=== PATIENT | female | born 1965 | race Two or more races ===

== ENCOUNTER 2019-07-23 12:46 | Emergency (ER) | payer OTHER ==
[~2019-07-23] VITALS: Ht 157.5 cm; Wt 59.9 kg
[2019-07-23 13:00] VITALS: BP 114/70
[2019-07-23] MEDS ORDERED: Gadavist 7.5mMol/7.5ml vial IV PRN ×2 (13:30→14:45)
--- NOTE | 2019-07-23 14:25 | NUR ---
ED Nurse Note: Patient moved from chair area to hallway bed. IV line established and blood sample collected and sent as ordered. Patient tolerated the procedure.
--- NOTE | 2019-07-23 14:45 | NUR ---
ED Nurse Note: Patient presents to ER due to chronic posterior neck pain radiating to LUE with nubmness/tingling since 2018. Patient attempted to relieve pain with Motrin. Patient awake, alert, oriented x 4. Regular, unlabored breathing noted. Reports no headache, N/V. Patient drove here from [place]. No facial grimacing or guarding noted. Placed patient in bed. Bed in lowest position.
--- NOTE | 2019-07-23 14:45 | Diagnostic Imaging Report ---
Indication: Headache Technique: Contiguous 5 mm thick transaxial imaging of the head obtained in a Siemens Sensation [address] scanner. Soft tissue and bone windows generated. Automatic Exposure Control was utilized. Total Dose length Product (DLP): 1304.[address] Dose Index Volume (CTDIvol): 60 mGy Comparison: none Findings: There is a rounded 2 x 1.5 cm mass in the left temporal lobe with associated surrounding low attenuation vasogenic edema. The mass exhibits a rim of high attenuation and a central low attenuation area and is suspicious for tumor. Differential includes cerebritis secondary to infection. There is some mass effect on the left lateral ventricle which is compressed. There is no midline shift. No additional lesions are seen. Further evaluation with gadolinium-enhanced MRI as indicated recommended. Basal cisterns appear normal. Osseous structures appear normal. Paranasal sinuses are clear as visualized. IMPRESSION: Approximately 2 x 1.5 cm mass in the left temporal lobe with surrounding vasogenic edema suspicious for neoplasm. Infection is in the differential diagnosis. Further evaluation with gadolinium-enhanced MRI is recommended. The CT scanner at [facility] is accredited by the [employer] and the scans are performed using dose optimization techniques as appropriate to a performed exam including Automatic Exposure control.
[2019-07-23 14:57] LABS: ANION GAP 12 mmol/L (5-15); BLOOD UREA NITROGEN 20 mg/dL (7-18); CALCIUM 8.8 MG/DL (8.5-10.1); CARBON DIOXIDE 25 MMOL/L (21-32); CHLORIDE 109 MMOL/L (98-107); CREATININE 0.7 MG/DL (0.55-1.30); POTASSIUM 3.6 MMOL/L (3.5-5.1); SODIUM 146 MMOL/L (136-145)
[2019-07-23] MEDS ORDERED: LORazepam 0.5mg tab ORAL ONE (15:00)
[2019-07-23 15:02] LABS: ALANINE AMINOTRANSFERASE 28 U/L (12-78); ALBUMIN 4.1 G/DL (3.4-5.0); ALBUMIN/GLOBULIN RATIO 0.8 (1.0-2.7); ALKALINE PHOSPHATASE 186 U/L (46-116); ASPARTATE AMINO TRANSFERASE 20 U/L (15-37); BILIRUBIN,TOTAL 0.5 MG/DL (0.2-1.0)
[2019-07-23 15:04] LABS: BASOPHILS % (AUTO) 1.1 % (0.0-2.0); EOSINOPHILS % (AUTO) 1.9 % (0.0-3.0); HEMATOCRIT 43.6 % (37.0-47.0); HEMOGLOBIN 14.8 G/DL (12.0-16.0); LYMPHOCYTES % (AUTO) 37.9 % (20.0-45.0); MEAN CORPUSCULAR VOLUME 92 FL (80-99); MONOCYTES % (AUTO) 5.5 % (1.0-10.0); NEUTROPHILS % (AUTO) 53.6 % (45.0-75.0); PLATELET COUNT 303 K/UL (150-450); RED BLOOD COUNT 4.73 M/UL (4.20-5.40); RED CELL DISTRIBUTION WIDTH 12.1 % (11.6-14.8); WHITE BLOOD COUNT 6.9 K/UL (4.8-10.8)
--- NOTE | 2019-07-23 15:45 | NUR ---
ED Nurse Note: Patient returned from MRI scan in wheelchair. No facial grimacing or guarding noted.
--- NOTE | 2019-07-23 16:11 | Diagnostic Imaging Report ---
Indication: Abnormal CT. Headache. Technique: The head was imaged in a 1.5 Flori magnet. Sequences obtained include sagittal and axial T1 FLAIR, axial T2 fast spin echo with fat saturation, axial T2 FLAIR, diffusion and ADC map. Gadolinium-enhanced axial and coronal T1 FLAIR obtained also. Comparison: Noncontrast CT earlier today There is a 13 x 19 x 16 mm heterogeneous lesion within the left temporal lobe. The focus is notable for an intense rim of low signal intensity on T2-weighted images. On both T1 and T2-weighted images the central aspect of the focus shows T1 shortening signal or bright T1 signal. There is surrounding vasogenic edema within the brain. In looking at enhancement demonstrated. Findings are consistent with a late subacute hematoma (minimum 2-3 weeks). The nature of the hematoma is uncertain. There are no additional lesions. Considerations include focus of hemorrhage secondary to hypertension, tumor, vascular malformation, especially cavernous angioma. Infection is also considered but would be unusual and less favored on an imaging basis. There is slight mass effect on the left lateral ventricle. The rim of hypointensity is associated with some blooming artifact on diffusion and also on T2*gradient echo due to the paramagnetic effect of extracellular methemoglobin. The corpus callosum is normal. The sella and osseous bone marrow signal appear unremarkable. There is no diffusion restriction to suggest acute CVA. Mild sinus disease with mucosal thickening demonstrated. IMPRESSION: 13 x 19 x 16 mm late subacute hematoma in the left temporal lobe. The focus of hemorrhage could be bland due to hypertension or secondary to small tumor or cavernous angioma. No other lesions are identified. Surrounding vasogenic edema and mild mass effect on the left lateral ventricle are noted.
--- NOTE | 2019-07-23 17:14 | Emergency Room Report ---
History of Present Illness General Chief Complaint: Pain Source: Patient (Migue Patten) Present Illness HPI 53-year-old female with history of cervical disc herniation x2 years and chronic neck pain here complaining of new onset of 2 days of left-sided blurry vision, headache, and left arm and left lower leg tingling sensation. Patient last had an MRI of the cervical region 2 years ago. 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 Denies any fall or injury. Denies dizziness, nausea vomiting. Has been taking ibuprofen for symptom relief with minimal relief. Patient has normal neurological exam. Complains of anxiety. Reports that she has a pending appointment with her new specialist which possible MRI of the cervical region may be done in 1 week. Denies at this time. feels vision changes on middle of left eye. (Migue Patten) Allergies: Coded Allergies: No Known Allergies (Unverified , 07/23/19) Patient History Past Medical History: see triage record Past Surgical History: unable to obtain Pertinent Family History: none Now: No Immunizations: UTD Reviewed Nursing Documentation: PMH: Agreed; PSxH: Agreed (Migue Patten) Nursing Documentation-PMH Past Medical History: No Stated History (Migue Patten) Review of Systems All Other Systems: negative except mentioned in HPI (Migue Patten) Physical Exam Vital Signs Date Time Temp Pulse Resp B/P (MAP) Pulse Ox O2 Delivery O2 Flow Rate FiO2 07/23/19 12:55 98.1 70 20 114/70 (85) 96 Room Air Sp02 EP Interpretation: reviewed, normal General Appearance: no apparent distress, alert, GCS 15, non-toxic Head: normocephalic, atraumatic Eyes: bilateral eye normal inspection, bilateral eye PERRL ENT: hearing grossly normal, normal pharynx, no angioedema, normal voice Neck: full range of motion, supple, thyroid normal, no meningismus, no bony tend, no carotid bruits, supple/symm/no masses Respiratory: chest non-tender, lungs clear, normal breath sounds, no rhonchi, no respiratory distress, no retraction, no accessory muscle use, no wheezing, speaking full sentences Cardiovascular #1: regular rate, rhythm, no edema, no murmur Cardiovascular #2: 2+ carotid (R), 2+ carotid (L), 2+ radial (R), 2+ radial (L) Gastrointestinal: normal bowel sounds, non tender, soft, non-distended, no guarding, no rebound Musculoskeletal: back normal, no calf tenderness, pelvis stable, gait/station normal Neurologic: alert, motor strength/tone normal, oriented, distal neuro normal, oriented x3, sensory intact, cerebellar normal, responsive, speech normal Psychiatric: judgement/insight normal, memory normal, mood/affect normal, no suicidal/homicidal ideation Skin: no rash, normal color Lymphatic: normal inspection, no adenopathy (Migue Patten) Medical Decision Making PA Attestation All my diagnosis and treatment plans were reviewed ad discussed with my supervising physician Dr. Black (Migue Patten) Diagnostic Impression: Primary Impression: Mass of left temporal lobe ER Course 53-year-old female with history of cervical disc herniation x2 years and chronic neck pain here complaining of new onset of 2 days of left-sided blurry vision, headache, and left arm and left lower leg tingling sensation. Patient last had an MRI of the cervical region 2 years ago. 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 Denies any fall or injury. Denies dizziness, nausea vomiting. Has been taking ibuprofen for symptom relief with minimal relief. Patient has normal neurological exam. Complains of anxiety. Reports that she has a pending appointment with her new specialist which possible MRI of the cervical region may be done in 1 week. Denies at this time. feels vision changes on middle of left eye. Ddx considered but are not limited to: cerebral hematoma, concussion, skull fracture, head contusion, brain tumor, AVM Vital signs: are WNL, pt. is afebrile H&PE are most consistent with: left temporal mass with subacute hematoma ORDERS: head CT no contrast , Brain MRI with contrast, CBC, CMP, tylenol ED INTERVENTIONS: ativan 0.5mg po , DISCHARGE: At this time pt. is stable for d/c to home. Will provide printed patient care instructions, and any necessary prescriptions. Care plan and follow up instructions have been discussed with the patient prior to discharge.dr. Black spoke to Neurosurgeon Dr. Gomes at [facility] [place] and it was decided that this is nonacute and patient can follow-up with neurosurgeon as an outpatient. Patient take medication as directed, follow-up with primary care provider. (Migue Patten) ER Course Patient was endorsed to me for possible left-sided mass. MRI read by radiology showed greater than 2-week old hematoma with possible etiologies including cavernous angioma see radiology report for full details. I discussed the patient's case with Dr. Gomes neurosurgery at [facility]. Per my conversation with . Patient was unlikely to require any surgical interventions. CT of the head with IV contrast showed no evidence of acute vascular pathology or arteriovenous malformation . Patient was noted to be resident of [place]. Patient appears to be stable for outpatient management. (Vinay Black MD) CT/MRI/US Diagnostic Results CT/MRI/US Diagnostic Results #1: Imaging Test Ordered: head CT no contrast Impression mass 2x1.5cm in left temporal CT/MRI/US Diagnostic Results #2: Imaging Test Ordered: brain MRI with contrast Impression subacute hematoma most likely secondary to tumor. (Migue Patten) Last Vital Signs Date Time Temp Pulse Resp B/P (MAP) Pulse Ox O2 Delivery O2 Flow Rate FiO2 07/23/19 13:00 98.1 71 20 114/70 96 Room Air (Migue Patten) Status: improved (Vinay Black MD) Disposition: HOME, SELF-CARE Condition: Stable Scripts Acetaminophen* (ACETAMINOPHEN 325MG TABLET*) 325 Mg Tablet 650 MG ORAL Q4H PRN for For Pain, #30 TAB Prov: Migue Patten 07/23/19 Referrals: NOT CHOSEN FRANKIE/,REFERRING (PCP) Additional Instructions: Follow-up with neurosurgeon he can be followed up as an outpatient. Avoid taking anything within the ibuprofen family. If worsening symptoms return to the emergency room iMgue Patten Jul 23, 2019 17:14 Vinay Black MD Jul 23, 2019 19:39
[2019-07-23] MEDS ORDERED: Omnipaue 350mg/ml 100ml vial INJ PRN (17:30)
[2019-07-23 17:32] VITALS: BP 125/70
[2019-07-23] MEDS ORDERED: ACETAMINOPHEN325 M1 ORAL (17:38)
--- NOTE | 2019-07-23 17:39 | NUR ---
ED Nurse Note: Patient reports no dizziness, drowsiness. No N/V. Patient remained awake, alert, oriented x 4. Patient ambulating with steady gait.
--- NOTE | 2019-07-23 17:41 | NUR ---
ED Nurse Note: agricultural engineering technicians here taking patient to CTA scan in wheelchair.
--- NOTE | 2019-07-23 18:15 | NUR ---
ED Nurse Note: Patient returned from CT. Patient resting in bed.
[2019-07-23 18:54] VITALS: BP 117/79
--- NOTE | 2019-07-23 19:06 | NUR ---
ED Nurse Note: Report given to GIOVANNY Bonilla. Patient resting in bed. Bed in lowest position.
--- NOTE | 2019-07-23 19:22 | Diagnostic Imaging Report ---
EXAM: CT Angiography Head With Intravenous Contrast CLINICAL HISTORY: MASS TECHNIQUE: Axial computed tomographic angiography images of the head with intravenous contrast. CTDI is 295.7 mGy and DLP is 1566.8 mGy-cm. One or more of the following dose reduction techniques were used: automated exposure control, adjustment of the mA and/or kV according to patient size, use of iterative reconstruction technique. MIP reconstructed images were created and reviewed. COMPARISON: Noncontrast head CT and brain MRI from earlier today FINDINGS: Right internal carotid artery: No acute findings. Intracranial segment is patent with no significant stenosis. No aneurysm. Right anterior cerebral artery: Unremarkable. No occlusion or significant stenosis. No aneurysm. Right middle cerebral artery: Unremarkable. No occlusion or significant stenosis. No aneurysm. Right posterior cerebral artery: Unremarkable. No occlusion or significant stenosis. No aneurysm. Right vertebral artery: Unremarkable as visualized. Left internal carotid artery: No acute findings. Intracranial segment is patent with no significant stenosis. No aneurysm. Left anterior cerebral artery: Unremarkable. No occlusion or significant stenosis. No aneurysm. Left middle cerebral artery: Unremarkable. No occlusion or significant stenosis. No aneurysm. Left posterior cerebral artery: Unremarkable. No occlusion or significant stenosis. No aneurysm. Left vertebral artery: Unremarkable as visualized. Basilar artery: Unremarkable. No occlusion or significant stenosis. No aneurysm. IMPRESSION: No vascular anomaly or aneurysm is associated with the previously described left temporal hematoma.
--- NOTE | 2019-07-23 19:24 | NUR ---
ER Nurse Note: Pt calm, cooperative, no signs of distress. Pt VSS, RA, waiting further procedures. SLIV LT AC patent; flushes well; pt denies pain. Pain meds given. All safety measures met; will continue to montior.
[2019-07-23 20:10] VITALS: BP 112/74
--- NOTE | 2019-07-23 20:10 | NUR ---
ED Nurse Note: Pt cleared by health care Provider for discharge. Discharge instructions and prescription was given and explained to pt with repeat verbalization and understanding of teachings. Emphazed to follow up with primay care physcian within 2-3 days for further care. All medical deviecs such as ID band and IV removed; IV site clean and bandaged. Pt is AAO x4, RA, VSS, ambulatory and left with all personal belongings.
== END 2019-07-23 20:10 | disposition home or self-care (01) ==
LOC: EMR 14:10
DX: R22.0 Localized swelling, mass and lump, head (principal); Z87.39 Personal history of other diseases of the musculoskeletal system and connective tissue
CPT/HCPCS: 36415; 70450; 70496; 70552; 80053; 85025; 99284; A9585; Q9967